=== PATIENT | female | born 1965 | race Caucasian/White ===

== ENCOUNTER 2016-10-27 20:44 | Emergency (ER) | payer BC ==
[~2016-10-27] VITALS: Ht 172.7 cm; Wt 64.0 kg
[2016-10-27 20:55] VITALS: TEMP 36.8; Ht 172.7 cm; Wt 64.0 kg
[2016-10-27] MEDS ORDERED: XYLOCAINE 1%/SOD BICARB 20 ML VIAL INFIL ONE (21:15)
[2016-10-27] MEDS ORDERED: VITA80005 PO (21:36)
[2016-10-27] MEDS ORDERED: CAL MAG ZINC PO (21:36)
[2016-10-27] MEDS ORDERED: SPEC1TAB PO (21:36)
[2016-10-27] MEDS ORDERED: IBUP-103 PO (21:36)
[2016-10-27] MEDS ORDERED: TURM1CAP4 PO (21:36)
[2016-10-27] MEDS ORDERED: CHOL1CAP57 PO (21:36)
[2016-10-27] MEDS ORDERED: MULT-513 PO (21:36)
[2016-10-27 22:45] VITALS: BP 123/81; PULSE 68; O2SAT 95
--- NOTE | 2016-10-28 00:24 | EMERGENCY ROOM VISIT NOTE ---
ED Visit Note First contact with patient: 21:08 CHIEF COMPLAINT: Scalp laceration HISTORY OF PRESENT ILLNESS: This 51-year-old female patient presents emergency department after striking the head on a tree just prior to arrival. The patient was playing with her dog, and she went to retrieve a ball that was underneath bushes. The patient did not recognize her proximity to a tree, and accidentally cut the back of her head. There was no loss of consciousness, blurry vision, nausea, vomiting, or unusual behavior afterwards. The patient rates the pain as dull and 7/10. The patient denies neck pain. The bleeding has stopped. The patient's tetanus shot is reportedly up to date. REVIEW OF SYSTEMS: A 6 system review of systems was completed with positives and pertinent negatives listed in the HPI. ALLERGIES: No known allergies MEDICATIONS: No chronic medications PMH: Otherwise healthy SOCIAL HISTORY: Lives locally PHYSICAL EXAM: Vital Signs: Reviewed Nurse's notes, vital signs stable. GENERAL : White female, in no acute distress, well-developed, well-nourished. NEURO: Patient was alert and oriented to person place and time. Sensory and motor functions grossly intact. No focal neurologic deficits. Normal sensation to light and sharp touch. EYES: PERRLA. EOMI. Fundoscopic exam without hemorrhages or papilledema. EARS: No hemotympanum. No del rosario sign or mastoid tenderness. SKIN: There is a 3.0 cm laceration on the posterior aspect of the scalp whose edges are gaping apart. There is no significant bleeding. The wound is clean and there are no deep structures present. NECK: Supple, cervical spine nontender to palpation. EMERGENCY DEPARTMENT COURSE: I examined the patient. Verbal consent was obtained to perform the procedure. Using sterile technique the wound was cleaned with Betadine. The area was sterilely draped. 6 ml of 1% buffered lidocaine was used to anesthetize the patient's scalp. Once the patient was numb, the wound was copiously irrigated under pressure with sterile saline. The wound was explored and there were no deep structures present. The laceration was repaired using 6 kwan with the wound edges being well approximated. The patient tolerated the procedure well. The bleeding stopped. The area was cleaned with sterile saline and dressed with bacitracin ointment. The patient was discharged home in good condition. Current/Historical Medications Scheduled Cholecalciferol (Vitamin D3), 1 CAP PO DAILY Multivitamins/Minerals (Mvi With Minerals), 1 TAB PO DAILY Specialty Vitamins Products (Menopause Relief), 1 TAB PO DAILY Turmeric (Curcuma Longa) (Turmeric), 2 CAP PO DAILY Vitamin A (Vitamin A), 1 CAP PO DAILY [Justin Mag Zinc], 1 CAP PO DAILY Scheduled PRN Ibuprofen Tab (Advil), 200 MG PO UD PRN for Pain or Fever Allergies Coded Allergies: No Known Allergies (Verified , 10/27/16) Vital Signs Date Time Temp Pulse Resp B/P Pulse Ox O2 Delivery O2 Flow Rate FiO2 10/27/16 22:45 68 18 123/81 95 10/27/16 20:55 36.8 63 16 126/80 93 Room Air Departure Information Impression Primary Impression: Scalp laceration Dispostion Home / Self-Care Condition GOOD Forms HOME CARE DOCUMENTATION FORM, IMPORTANT VISIT INFORMATION Patient Instructions My [facility], ED Laceration All, ED Scar Tips to Minimize Additional Instructions Keep wound clean and dry. Do not allow any crusting or dried blood to accumulate on stapless. If this occurs, use a mild soap/water on a Q-tip to clean the wound. Do not use Peroxide to clean the wound as this can delay healing Use an antibiotic ointment like Bacitracin for 3-4 days, then let wound dry. You may bathe and shower as normal, but DO NOT SOAK the wound. Staple removal in about 10-12 days with your Family Doctor or in the ER. Return sooner for any signs of infection, increasing redness, swelling, or drainage.
== END 2016-10-27 22:46 | disposition home or self-care (01) ==
LOC: C.EDB 20:45 → C.EDD 22:46
DX: S01.01XA Laceration without foreign body of scalp, initial encounter (principal); W22.8XXA Striking against or struck by other objects, initial encounter; Y93.K9 Activity, other involving animal care; Y92.414 Local residential or business street as the place of occurrence of the external cause; Y99.8 Other external cause status

== ENCOUNTER → 2017-01-23 | Outpatient (CLI) | payer BC ==
[~2017-01-23] MED LIST: CAL MAG ZINC PO; CHOL1CAP57 PO; IBUP-103 PO; MULT-513 PO; SPEC1TAB PO; TURM1CAP4 PO; VITA80005 PO
== END | disposition home or self-care (01) ==
LOC: C.PAPS 15:17
PROVIDERS: ATTEND Obstetrics & Gynecology
DX: Z01.419 Encounter for gynecological examination (general) (routine) without abnormal findings (principal)